=== PATIENT | female | born 1980 | race Two or more races ===

== ENCOUNTER 2018-08-29 11:09 | Emergency (ER) | payer OTHER ==
[~2018-08-29] VITALS: Ht 154.9 cm; Wt 59.0 kg
[2018-08-29 11:15] VITALS: BP 114/79
== END 2018-08-29 13:34 | disposition home or self-care (01) ==
LOC: ER 13:08
DX: F41.9 Anxiety disorder, unspecified (principal); F32.9 Major depressive disorder, single episode, unspecified
CPT/HCPCS: 81025; 99283

== ENCOUNTER 2020-08-20 20:24 | Emergency (ER) | payer OTHER ==
[~2020-08-20] VITALS: Ht 157.5 cm; Wt 67.0 kg
[2020-08-20] MEDS ORDERED: OLANZAPINE 5MG TABLET ODT PO ONE (21:00)
[2020-08-20 22:06] VITALS: BP 105/70
== END 2020-08-20 22:07 | disposition home or self-care (01) ==
LOC: ER 20:24
DX: F20.9 Schizophrenia, unspecified (principal); Z98.890 Other specified postprocedural states
CPT/HCPCS: 99281